=== PATIENT | female | born 1985 | race Caucasian/White ===

== ENCOUNTER 2019-05-06 11:24 | Emergency (ER) | payer OTHER ==
[~2019-05-06] VITALS: Ht 162.6 cm; Wt 46.7 kg
--- NOTE | 2019-05-06 11:30 | NUR ---
at bedside to examine patient.
[2019-05-06] MEDS ORDERED: VORT20TA PO (11:39)
[2019-05-06 12:00] LABS: BASOPHILS % (AUTO) 0.4 % (0.0-2.0); EOSINOPHILS % (AUTO) 0.5 % (0.0-7.0); HEMOGLOBIN 13.6 g/dL (10.9-14.3); LYMPHOCYTES # (AUTO) 1.8 K/uL (20.0-40.0); LYMPHOCYTES % (AUTO) 22.7 % (20.5-51.5); MEAN CORPUSCULAR HGB CONC 34 g/dL (32.3-35.6); MEAN CORPUSCULAR VOLUME 88.2 fL (75.5-95.3); MONOCYTES # (AUTO) 0.5 K/uL (2.0-10.0); NEUTROPHILS # (AUTO) 5.4 K/uL (1.8-8.9); NEUTROPHILS % (AUTO) 69.4 % (38.5-71.5); PLATELET COUNT (AUTO) 208 K/uL (179-408); RED BLOOD CELL COUNT(AUTO) 4.54 MIL/uL (3.63-4.92); WHITE BLOOD COUNT (AUTO) 7.7 K/uL (3.8-11.8)
--- NOTE | 2019-05-06 12:00 | NUR ---
US tech. in the room for ordered Abd. US. Shaperon at bedside.
[2019-05-06 12:07] LABS: CREATININE 0.7 mg/dL (0.6-1.3); POTASSIUM 3.9 mmol/L (3.5-5.1)
[2019-05-06 12:13] LABS: BILIRUBIN,DIRECT 0.1 mg/dL (0.0-0.2); BILIRUBIN,TOTAL 0.4 mg/dL (0.2-1.0); TOTAL PROTEIN, SERUM 7.6 g/dL (6.4-8.2)
[2019-05-06 12:14] LABS: *BILIRUBIN,URIN NEGATIVE (NEGATIVE); *BLOOD, URINE 2+ (NEGATIVE); *CLARITY,URINE CLEAR (CLEAR); *COLOR,URINE YELLOW (YELLOW); *KETONES,URINE NEGATIVE (NEGATIVE); *UROBILINOGEN,URINE 0.2 E.U./dl (NORMAL); LEUKOCYTE ESTERASE ,URINE NEGATIVE (NEGATIVE); NITRITE, URINE NEGATIVE (NEGATIVE); UGLUCOSE NEGATIVE (NEGATIVE)
[2019-05-06 12:19] LABS: BACTERIA,URINE NONE SEEN /HPF (NONE SEEN); SQUAMOUS EPITHELIAL CELL,UR FEW /HPF (NONE SEEN); WBC,URINE 0-3 /HPF (0-3)
--- NOTE | 2019-05-06 12:40 | NUR ---
at bedside updating pt. on US. results.
--- NOTE | 2019-05-06 12:57 | NUR ---
dcd isntructions and copy of labs and ultrasound given to patient. Pt. educated on s/s of complications that should prompt her to come back to the E. R. pt. verbalized understanding. Left room ambulatory, no c/of pain.
== END 2019-05-06 13:02 | disposition home or self-care (01) ==
LOC: ER 11:24
DX: O03.9 Complete or unspecified spontaneous abortion without complication (principal); Z79.899 Other long term (current) drug therapy
CPT/HCPCS: 36415; 76856; 85025; 85730; 86850; 86900; 86901; A4663

== ENCOUNTER 2022-05-15 15:34 | Emergency (ER) | payer OTHER ==
[~2022-05-15] VITALS: Ht 160 cm; Wt 47.6 kg
[~2022-05-15 15:34] MED LIST: VORT20TA PO
[2022-05-15] MEDS ORDERED: LORA0.5T48 PO (15:51)
[2022-05-15] MEDS: KETOROLAC TROMETHAMINE 15 MG INJ IM ONE ×2 (16:02→16:18)
[2022-05-15] MEDS ORDERED: KETOROLAC TROMETHAMINE 15 MG INJ ONE (16:13)
[2022-05-15] MEDS ORDERED: IBUP-1955 PO (16:22)
--- NOTE | 2022-05-15 16:54 | NUR ---
Patient discharged to home in stable condition. Written and verbal after care instructions given. Patient verbalizes understanding of instructions. Stressed follow up or return to ER for worsening s/s.
== END 2022-05-15 16:55 | disposition home or self-care (01) ==
LOC: ER 15:50
DX: R07.89 Other chest pain (principal); F41.9 Anxiety disorder, unspecified; Z79.899 Other long term (current) drug therapy
CPT/HCPCS: 71045; 93005; A4663; J1885

== ENCOUNTER 2024-03-17 13:31 | Emergency (ER) | payer OTHER ==
[~2024-03-17] VITALS: Ht 157.5 cm; Wt 46.7 kg
[~2024-03-17 13:31] MED LIST changes: +FAMO-132 PO; +ONDA4TAB5 PO; +PEPCID; +SERT50TA14; -VORT20TA PO; +XANAX
[2024-03-17 14:14] VITALS: BP 109/69; O2SAT 100
== END 2024-03-17 14:14 | disposition home or self-care (01) ==
LOC: ER 13:31
DX: R55 Syncope and collapse (principal); R20.2 Paresthesia of skin; K21.9 Gastro-esophageal reflux disease without esophagitis; Z79.899 Other long term (current) drug therapy; Z60.2 Problems related to living alone
CPT/HCPCS: A4606; A4663

== ENCOUNTER 2024-05-06 09:45 | Emergency (ER) | payer OTHER ==
[~2024-05-06] VITALS: Ht 160 cm; Wt 46.3 kg
[~2024-05-06 09:45] MED LIST changes: -ONDA4TAB5 PO
[2024-05-06] MEDS: IV NORMAL SALINE 1000 ML BAG IV ONE ×2 (10:23→11:07)
[2024-05-06 10:32] LABS: BASOPHILS # (AUTO) 0.2 K/UL (0.0-0.2); BASOPHILS % (AUTO) 2.8 % (0.0-2.0); EOSINOPHILS # (AUTO) 0.1 K/uL (0.0-0.7); EOSINOPHILS % (AUTO) 1.3 % (0.0-7.0); HEMATOCRIT 36.7 % (31.2-41.9); HEMOGLOBIN 12.2 g/dL (10.9-14.3); LYMPHOCYTES # (AUTO) 1.5 K/uL (0.8-4.8); MEAN CORPUSCULAR HEMOGLOBIN 28.2 uug (24.7-32.8); MEAN CORPUSCULAR HGB CONC 33 g/dL (32.3-35.6); MEAN CORPUSCULAR VOLUME 84.8 fL (75.5-95.3); MONOCYTES # (AUTO) 0.5 K/uL (0.1-1.30); MONOCYTES % (AUTO) 6.8 % (0.0-11.0); NEUTROPHILS # (AUTO) 4.7 K/uL (1.8-8.9); NEUTROPHILS % (AUTO) 67.1 % (38.5-71.5); PLATELET COUNT (AUTO) 185 K/uL (179-408); RED BLOOD CELL COUNT(AUTO) 4.32 MIL/uL (3.63-4.92); RED CELL DISTRIBUTION WIDTH 14.8 % (12.3-17.7)
[2024-05-06 10:35] LABS: DIFFERENTIAL COMMENT 1
[2024-05-06 11:05] LABS: CALCIUM 9.1 mg/dL (8.5-10.1); CREATININE 0.7 mg/dL (0.6-1.3); POTASSIUM 3.2 mmol/L (3.5-5.1)
[2024-05-06 11:10] LABS: ALBUMIN 3.8 g/dL (3.4-5.0); BILIRUBIN,DIRECT 0.1 mg/dL (0.0-0.2); BILIRUBIN,TOTAL 0.5 mg/dL (0.2-1.0); TOTAL PROTEIN, SERUM 7.2 g/dL (6.4-8.2)
[2024-05-06] MEDS ORDERED: POTASSIUM BICARBONATE/CIT AC 25 MEQ TABLET.EFF ONE (11:26)
[2024-05-06] MEDS ORDERED: ONDANSETRON ODT 4 MG TAB.RAPDIS ONE (11:26)
[2024-05-06] MEDS: POTASSIUM BICARBONATE/CIT AC 25 MEQ TABLET.EFF PO ONE (11:30)
[2024-05-06] MEDS: ONDANSETRON ODT 4 MG TAB.RAPDIS SL ONE (11:31)
[2024-05-06 11:47] LABS: *BILIRUBIN,URIN NEGATIVE (NEGATIVE); *BLOOD, URINE 2+ (NEGATIVE); *CLARITY,URINE CLEAR (CLEAR); *COLOR,URINE YELLOW (YELLOW); *KETONES,URINE NEGATIVE (NEGATIVE); *PROTEIN,URINE NEGATIVE (NEGATIVE); *UROBILINOGEN,URINE 0.2 E.U./dl (NORMAL); LEUKOCYTE ESTERASE ,URINE NEGATIVE (NEGATIVE); NITRITE, URINE NEGATIVE (NEGATIVE); UGLUCOSE NEGATIVE (NEGATIVE)
[2024-05-06 12:05] LABS: *URINE HCG, QUAL POSITIVE (NEGATIVE)
[2024-05-06 13:35] VITALS: BP 124/68; TEMP 98.3; O2SAT 97
[2024-05-06 15:21] LABS: BACTERIA,URINE NONE SEEN /HPF (NONE SEEN); SQUAMOUS EPITHELIAL CELL,UR FEW /HPF (NONE SEEN); WBC,URINE 0-3 /HPF (0-3)
== END 2024-05-06 13:36 | disposition home or self-care (01) ==
LOC: ER 09:45
DX: R55 Syncope and collapse (principal); K21.9 Gastro-esophageal reflux disease without esophagitis; R10.2 Pelvic and perineal pain; Z79.899 Other long term (current) drug therapy; Z60.2 Problems related to living alone
CPT/HCPCS: 99284; 96360; 76805; 96361; 80076; 80048; 81001; 84703; 85025; 84702; J7040 ×2; 36415; 70030-TC; A4606; A4663; Q0162

== ENCOUNTER 2024-07-27 11:20 | Emergency (ER) | payer OTHER ==
[~2024-07-27] VITALS: Ht 160 cm; Wt 46.7 kg
[2024-07-27] MEDS ORDERED: DICL25TA2 PO (12:52)
[2024-07-27 13:04] VITALS: BP 119/77; O2SAT 99
== END 2024-07-27 13:04 | disposition home or self-care (01) ==
LOC: ER 11:20
DX: M94.0 Chondrocostal junction syndrome [Tietze] (principal); F41.9 Anxiety disorder, unspecified; F32.A Depression, unspecified; K21.9 Gastro-esophageal reflux disease without esophagitis; Z60.2 Problems related to living alone; Z88.7 Allergy status to serum and vaccine
CPT/HCPCS: 71045; A4606; A4663

== ENCOUNTER 2025-07-30 13:17 | Emergency (ER) | payer MEDICAID ==
[~2025-07-30] VITALS: Ht 160 cm; Wt 49.9 kg
[~2025-07-30 13:17] MED LIST changes: +DICL25TA2 PO
[2025-07-30 13:20] VITALS: BP 118/72
[2025-07-30 15:00] LABS: PLATELET COUNT (AUTO) 163 K/uL (179-408); RED BLOOD CELL COUNT(AUTO) 4.01 MIL/uL (3.63-4.92); RED CELL DISTRIBUTION WIDTH 14.0 % (12.3-17.7); WHITE BLOOD COUNT (AUTO) 5.9 K/uL (3.8-11.8)
[2025-07-30 15:09] LABS: CREATININE 0.4 mg/dL (0.6-1.3); SODIUM SERUM 138 mmol/L (136-145); UREA NITROGEN, BLOOD 9 mg/dL (7-18)
[2025-07-30 15:14] LABS: ASPARTATE AMINOTRANSFERASE 21 U/L (15-37); TOTAL PROTEIN, SERUM 7.4 g/dL (6.4-8.2)
[2025-07-30 15:41] LABS: PREGNANCY TEST SERUM QUAN 71718 miul/L (0-6)
[2025-07-30 16:33] VITALS: BP 118/72; O2SAT 99
== END 2025-07-30 16:33 | disposition home or self-care (01) ==
LOC: ER 13:17
DX: O20.0 Threatened abortion (principal); O09.291 Supervision of pregnancy with other poor reproductive or obstetric history, first trimester; N83.292 Other ovarian cyst, left side; F41.9 Anxiety disorder, unspecified; F32.A Depression, unspecified; O20.8 Other hemorrhage in early pregnancy; Z88.7 Allergy status to serum and vaccine; Z3A.01 Less than 8 weeks gestation of pregnancy
CPT/HCPCS: 36415; 76856; 85025; 85730; 86850; 86900; 86901; A4606; A4663